=== PATIENT | female | born 1995 ===

== ENCOUNTER 2018-07-15 10:14 | Outpatient (CLI) | payer OTHER ==
[2018-07-15 10:57] LABS: MEAN CORPUSCULAR HEMOGLOBIN 25.7 pg (28.0-34.0)
[2018-07-15 10:58] LABS: BASOPHILS % 0.4 (0.0-1.5); EOSINOPHILS % 2.1 % (0.0-6.8); MONOCYTES % 4.1 % (0.0-11.0); NEUTROPHILS # 3.2 # k/uL (1.4-7.7)
== END 2018-07-15 10:16 ==
LOC: LAB 10:14
PROVIDERS: ATTEND Family Medicine
DX: D50.9 Iron deficiency anemia, unspecified (principal); D64.9 Anemia, unspecified
CPT/HCPCS: 36415; 82607; 82746; 83540; 85025